=== PATIENT | female | born 1930 ===

== ENCOUNTER 2017-10-28 09:21 | Emergency (ER) | payer MEDICARE, OTHER ==
[2017-10-28 09:21] VITALS: BMI 31.1
[2017-10-28 09:32] VITALS: PULSE 87; O2SAT 97
--- NOTE | 2017-10-28 10:22 | C.PDOC ---
History Of Present Illness 87 yr old female presents to the ER with complaints of chest tightness and SOB since morning. Patient states it waxes and wanes but still present. Patient denies fever, chills, nausea, vomiting, abdominal pain, neck pain, weakness or numbness. Time Seen by Provider: 10/28/17 09:38 Chief Complaint (Nursing): Shortness Of Breath History Per: Patient History/Exam Limitations: no limitations Onset/Duration Of Symptoms: Waxing/Waning, Sudden Onset (since morning) Past Medical History Reviewed: Historical Data, Nursing Documentation, Vital Signs Vital Signs: Last Vital Signs Temp 98.4 F 10/28/17 11:41 Pulse 87 10/28/17 11:41 Resp 16 10/28/17 11:41 BP 147/84 10/28/17 11:41 Pulse Ox 97 10/28/17 12:28 - Medical History PMH: HTN, Hypercholesterolemia, Hypothyroidism Surgical History: Appendectomy (60 years ago), Cholecystectomy Family History: States: No Known Family Hx - Social History Hx Alcohol Use: No Hx Substance Use: No - Immunization History Hx Influenza Vaccination: Yes Hx Pneumococcal Vaccination: Yes Review Of Systems Except As Marked, All Systems Reviewed And Found Negative. Constitutional: Negative for: Fever, Chills Cardiovascular: Positive for: Other (+ chest tightness) Respiratory: Positive for: Shortness of Breath Gastrointestinal: Negative for: Nausea, Vomiting, Abdominal Pain Musculoskeletal: Negative for: Neck Pain Neurological: Negative for: Weakness, Numbness Physical Exam - Physical Exam Appears: Non-toxic, No Acute Distress Skin: Warm, Dry, No Rash Eye(s): bilateral: Normal Inspection, PERRL, EOMI Oral Mucosa: Moist Tongue: No Swelling Neck: Normal, Normal ROM, Supple Cardiovascular: Rhythm Regular, No Murmur Respiratory: Normal Breath Sounds, No Rales, No Rhonchi, No Stridor, No Wheezing Neurological/Psych: Oriented x3, Normal Speech ED Course And Treatment - Laboratory Results Result Diagrams: 10/28/17 10:45 10/28/17 10:45 ECG: Interpreted By Me, Viewed By Me ECG Rhythm: Sinus Rhythm Interpretation Of ECst degree AV block. Poor R wave progresssion. Non specific T wave changes. Rate From EC (BPM) O2 Sat by Pulse Oximetry: 97 (RA) Pulse Ox Interpretation: Normal - Other Rad CXR X-Ray: Viewed By Me, Read By Radiologist Interpretation: PROCEDURE: CHEST RADIOGRAPH, 1 VIEW. HISTORY: chest pain. COMPARISON: 12/21/2015. FINDINGS: LUNGS: No consolidation lung volumes shallow. Mild interstitial lung marking prominence- appearing. PLEURA: No pneumothorax or pleural fluid seen. CARDIOVASCULAR: Probable minimal cardiomegaly. No charley pulmonary venous congestion noted. OSSEOUS STRUCTURES: Bilateral shoulder arthrosis. VISUALIZED UPPER ABDOMEN: Normal. OTHER FINDINGS: Probable summation soft tissues overlying the right costophrenic angle. IMPRESSION: No interval pathology noted Progress Note: Patient signed out AMA. Patient understands risks of leaving againt medical advise. Patient is advised to follow up with PMD as soon as possible. Medical Decision Making Medical Decision Making: PLAN: * CXR * EKG * Labs * Aspirin PO Disposition Counseled Patient/Family Regarding: Studies Performed, Diagnosis, Need For Followup - Disposition Referrals: Jc Abad MD [Staff Provider] - Disposition: AGAINST MEDICAL ADVICE Disposition Time: 12:26 Condition: FAIR Additional Instructions: you are signing out against medical advice and assuming responsibility of your care you understand symptoms may progress or worsen and lead to irreversible outcome including you are welcome to return to ER at anytime follow up with your doctor immediately Instructions: Chest Pain Forms: [employer] (Citizen Of [place]) Print Language: KOREAN - Clinical Impression Clinical Impression: Chest pain - Scribe Statement The provider has reviewed the documentation as recorded by the Sueibbrett Mcmahon Provider Attestation: All medical record entries made by the Sueibbrett were at my direction and personally dictated by me. I have reviewed the chart and agree that the record accurately reflects my personal performance of the history, physical exam, medical decision making, and the department course for this patient. I have also personally directed, reviewed, and agree with the discharge instructions and disposition.
--- NOTE | 2017-10-28 10:40 | RAD ---
PROCEDURE: CHEST RADIOGRAPH, 1 VIEW HISTORY: chest pain COMPARISON: 12/21/2015 FINDINGS: LUNGS: No consolidation lung volumes shallow. Mild interstitial lung marking prominence- appearing PLEURA: No pneumothorax or pleural fluid seen. CARDIOVASCULAR: Probable minimal cardiomegaly No charley pulmonary venous congestion noted OSSEOUS STRUCTURES: Bilateral shoulder arthrosis VISUALIZED UPPER ABDOMEN: Normal. OTHER FINDINGS: Probable summation soft tissues overlying the right costophrenic angle. IMPRESSION: No interval pathology noted
[2017-10-28 10:55] LABS: BASO # 0.1 K/uL (0.0-0.2); EOS # 0.1 K/uL (0.0-0.7); EOS % 1.8 % (0.0-4.0); HEMOGLOBIN 13.5 g/dL (11.0-16.0); LYMPH # 2.2 K/uL (1.0-4.3); LYMPH % 26.8 % (20.0-40.0); MEAN CELL VOLUME 92.9 fL (81.0-99.0); MEAN CORPUSCULAR HGB CONC 34.5 g/dL (33.0-37.0); MEAN PLATELET VOLUME 9.9 fL (7.2-11.7); MONO # 0.6 K/uL (0.0-0.8); MONO % 6.8 % (0.0-10.0); NEUT # 5.2 K/uL (1.8-7.0); NEUT % 63.6 % (50.0-75.0); NRBC % 0.1 % (0.0-2.0); RBC 4.23 Mil/uL (3.80-5.20); RED CELL DISTRIBUTION WIDTH 13.1 % (11.5-14.5); WHITE BLOOD COUNT 8.1 K/uL (4.8-10.8)
[2017-10-28 11:13] LABS: ALBUMIN 3.9 g/dL (3.5-5.0); ALT/SGPT 29 U/L (9-52); AST/SGOT 31 U/L (14-36); BLOOD UREA NITROGEN 14 mg/dL (7-17); CALCIUM 8.7 mg/dl (8.6-10.4); GFR AFRICAN-AMERICAN > 60; GFR NON-AFRICAN AMERICAN > 60
[2017-10-28 11:21] LABS: B-TYPE NATRIURETIC PEPTIDE 63.5 pg/mL (0-900)
[2017-10-28 11:42] VITALS: BP 147/84; RESP 16; TEMP 98.4
--- NOTE | 2017-10-30 08:55 | CARD ---
APPROVED REPORT EKG Measurement Heart [id number] <Conclusion> Sinus rhythm with 1st degree AV block Possible Anterior infarct, age undetermined Abnormal ECG
== END 2017-10-28 13:02 | disposition left against medical advice (07) ==
LOC: C.ER 09:21
DX: R07.9 Chest pain, unspecified (principal)

== ENCOUNTER 2018-09-13 10:00 | Outpatient (CLI) | payer MEDICARE, OTHER | END 2018-09-13 10:01 | disposition home or self-care (01) | LOC: C.RADH 10:00 | DX: J06.9 Acute upper respiratory infection, unspecified (principal) ==

== ENCOUNTER 2018-10-30 11:36 | Emergency (ER) | payer MEDICARE, OTHER ==
[2018-10-30 11:36] VITALS: BMI 31.1
[2018-10-30 12:01] VITALS: RESP 18
--- NOTE | 2018-10-30 13:07 | C.PDOC ---
History Of Present Illness 88 years old female presents to ED for complaints of neck, head, and right sided shoulder pain associated with dizziness and vomiting THIRD HAND. Patient states she lost balance as she was going up the stairs with a shopping cart and slipped and fell. As per neighbor, she found patient on the floor with the shopping cart on top of her then she called 911. Denies LOC, numbness, weakness, vision changes, chest pain or SOB. - HPI Time Seen by Provider: 10/30/18 11:55 Chief Complaint (Nursing): Trauma History Per: Patient History/Exam Limitations: no limitations Onset/Duration Of Symptoms: Sudden Onset Injury Occurred (Timing): Hours Ago: Location Of Injury: Right: Head, Neck, Shoulder Pain Scale Rating Of: 6 Associated Symptoms: Dizziness Recent travel outside of the [place]: No - Fall Fall:Prior To Injury: Slipped Past Medical History Reviewed: Historical Data, Nursing Documentation, Vital Signs Vital Signs: Last Vital Signs Temp 98 F 10/30/18 11:45 Pulse 90 10/30/18 11:45 Resp 18 10/30/18 11:45 BP 201/90 H 10/30/18 11:45 Pulse Ox 99 10/30/18 11:45 - Medical History PMH: HTN, Hypercholesterolemia, Hypothyroidism Denies: Chronic Kidney Disease Surgical History: Appendectomy (60 years ago), Cholecystectomy Family History: States: No Known Family Hx - Social History Hx Alcohol Use: No Hx Substance Use: No - Immunization History Hx Influenza Vaccination: Yes Hx Pneumococcal Vaccination: Yes Review Of Systems Except As Marked, All Systems Reviewed And Found Negative. Constitutional: Negative for: Fever, Chills Eyes: Negative for: Pain, Vision Change ENT: Negative for: Ear Pain, Ear Discharge Cardiovascular: Negative for: Chest Pain, Palpitations Respiratory: Negative for: Shortness of Breath Gastrointestinal: Positive for: Nausea, Vomiting. Negative for: Abdominal Pain, Diarrhea Genitourinary: Negative for: Dysuria, Frequency Musculoskeletal: Positive for: Neck Pain, Shoulder Pain, Other (Head pain ) Skin: Negative for: Rash Neurological: Positive for: Dizziness. Negative for: Weakness, Numbness, Incoordination, Change in Speech, Seizures, Altered Mental Status Physical Exam - Physical Exam Appears: Non-toxic, No Acute Distress Skin: Normal Color, Warm, Dry, No Rash Head: Atraumatic, Normacephalic Eye(s): bilateral: Normal Inspection, PERRL, EOMI Ear(s): Bilateral: Normal (No hemotympanum) Nose: Normal, No Discharge Oral Mucosa: Moist Tongue: Normal Appearing (midline), No Swelling Throat: Normal, No Erythema, No Exudate, No Drooling, No Mass Neck: Normal ROM, Midline Cervical Tenderness Chest: Symmetrical, No Tenderness Cardiovascular: Rhythm Regular, No Friction Rub, No Murmur Respiratory: Normal Breath Sounds, No Rales, No Rhonchi, No Wheezing Gastrointestinal/Abdominal: Normal Exam, Bowel Sounds (Active ), Soft, No Tenderness, No Guarding, No Rebound Back: Normal Inspection, No CVA Tenderness Extremity: Normal ROM, No Deformity, No Swelling Extremity: Bilateral: Atraumatic, Normal Color And Temperature, Normal ROM Pulses: Left Dorsalis Pedis: Normal, Right Dorsalis Pedis: Normal Neurological/Psych: Oriented x3, Normal Speech, Normal Cranial Nerves, Normal Motor, Normal Sensation, Normal Reflexes, Other (No focal deficits ) Gait: Steady ED Course And Treatment O2 Sat by Pulse Oximetry: 99 (RA) Pulse Ox Interpretation: Normal - Other Rad CXR X-Ray: Viewed By Me, Read By Radiologist Interpretation: Date of service: 10/30/2018. HISTORY: fall, chest pain. COMPARISON: Comparison chest 09/13/2018. FINDINGS: LUNGS: Poor inspiration with low lung volumes, crowded bronchovascular markings and mild bibasilar atelectasis. The interstitial markings are also increased and coarsened; rule out underlying sequela reactive/inflammatory airway disease or viral illness. PLEURA: No significant pleural effusion identified, no pneumothorax apparent. CARDIOVASCULAR: No aortic atherosclerotic calcification present. Cardiomegaly. . OSSEOUS STRUCTURES: No significant abnormalities. VISUALIZED UPPER ABDOMEN: Normal. OTHER FINDINGS: None. IMPRESSION: Poor inspiration with low lung volumes, crowded bronchovascular markings and mild bibasilar atelectasis. The interstitial markings are also increased and coarsened; rule out underlying sequela reactive/inflammatory airway disease or viral illness Hip/Pelvis X-Ray X-Ray: Viewed By Me, Read By Radiologist Interpretation: Date of service: 10/30/2018. PROCEDURE: Pelvis-right hip. HISTORY: hip pain. COMPARISON: No prior studies available for comparison. TECHNIQUE: Frontal view of the pelvis and both hips as well as frogleg lateral view right hip performed. FINDINGS: The current study reveals no evidence of acute displaced fracture nor dislocation. The osseous structures appear intact. Both femoral heads appropriately located within the respective acetabula. Mild degenerative osteoarthritis both hip joints. Mild sclerosis both SI joints. Multilevel degenerative spondylosis of the lower lumbosacral spine. IMPRESSION: No definitive radiographic evidence of acute displaced fracture nor dislocation. If symptoms persist or occult fracture suspected clinically recommend follow-up CT scan of the pelvis and right hip Right Knee X-Ray X-Ray: Viewed By Me, Read By Radiologist Interpretation: Date of service: 10/30/2018. PROCEDURE: Right Knee Radiographs. HISTORY: knee injury. COMPARISON: None. FINDINGS: BONES: No evidence of acute displaced fracture nor dislocation. 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 There is joint space narrowing with subchondral sclerosis and vacuum disc phenomena. JOINT EFFUSION: No significant joint effusion. OTHER FINDINGS: There are soft tissue calcifications seen adjacent to the medial femoral condyle possibly within the medial collateral ligament appeared there is also an elliptical shaped calcification the the within the lateral soft tissues at the level of the lateral margin of the distal femoral metaphysis. Calcifications also seen adjacent to the lateral joint space margin. IMPRESSION: No evidence of acute displaced fracture nor dislocation. 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 PROCEDURE: CT HEAD WITHOUT CONTRAST. HISTORY: Head injury; rule hemorrhage. COMPARISON: Comparison made with prior CT scan brain 12/21/2015. TECHNIQUE: Axial computed tomography images were obtained through the head/brain without intravenous contrast. Radiation dose: Total exam DLP = 1273.29 mGy-cm. This CT exam was performed using one or more of the following dose reduction techniques: Automated exposure control, adjustment of the mA and/or kV according to patient size, and/or use of iterative reconstruction technique. FINDINGS: HEMORRHAGE: No intracranial hem orrhage. BRAIN: Moderate chronic periventricular white matter ischemic changes seen extending peripherally into the deep and subcortical white matter both cerebral hemispheres.. There is also some extension these changes into the white matter tracts of both basal nuclei. 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 Mild generalized volume loss. Mild vascular calcifications both carotid siphons. VENTRICLES: Unremarkable. No hydrocephalus. CALVARIUM: Calvarium intact. PARANASAL SINUSES: Mild mucosal thickening seen in both maxillary antra as well as several ethmoid air cells. MASTOID AIR CELLS: Unremarkable as visualized. No inflammatory changes. OTHER FINDINGS: Redemonstrated are changes of bilateral cataract surgery. IMPRESSION: Moderate chronic white matter and basal nuclei ischemic changes as above. Mild generalized volume loss. Cervical Spine CT Other Rad Studies (CT/US): Read By Radiologist, Radiology Report Reviewed CT/US Interpretation: Date of service: 10/30/2018. PROCEDURE: CT Cervical Spine without contrast. HISTORY: Status post fall, neck pain, Hard collar in place. COMPARISON: Correlation made with plain film radiographs of the cervical spine 03/14/2018. TECHNIQUE: Axial computed tomography images were obtained of the cervical spine without the use of intravenous contrast. Coronal and sagittal reformatted images were created and reviewed. Radiation dose: Total exam DLP = 507.08 mGy-cm. This CT exam was performed using one or more of the following dose reduction techniques: Automated exposure control, adjustment of the mA and/or kV according to patient size, and/or use of iterative reconstruction technique. FINDINGS: VERTEBRAE: No acute compression fractures no retropulsed fragments. Vertebral bodies exhibit relatively normal stature and alignment. Facets normally aligned. Redemonstrated are nonspecific lucent changes within the C6 vertebral body possibly representing underlying hemangioma. . DISCS/SPINAL CANAL/NEURAL FORAMINA: Multilevel degenerative spondylosis. At the C5-C6 level, there is disc space narrowing with what appears represent a disc calcification. Small broad-based disc ridge complex contiguous with hypertrophic uncovertebral joints. The facets are mildly hypertrophic. Central canal appears adequate however the exit foramina appear narrowed. At the C4-C5 level, there is adequate disc height with what appears represent faint intradiscal calcification. No disc herniation or significant disc bulge. Facets are quite hypertrophic. There is moderate hypertrophic uncovertebral joint changes with bilateral foraminal stenosis. At the C3-C4 level, there is adequate disc height.. Small broad-based disc ridge complex contiguous with hypertrophic uncovertebral joints right larger than left. The right facet is also quite hypertrophic more so than left. Right-sided foraminal stenosis. Left exit foramen is adequate. Mild degenerative changes seen at the C6-C7 level. PARASPINAL SOFT TISSUES: Unremarkable. OTHER FINDINGS: Enlarged heterogeneous right lobe thyroid gland (with what appear to represent scattered ill-defined areas of low attenuation) for which non emergent thyroid ultrasound follow-up recommended. Lung apices are clear. IMPRESSION: No acute fractures. Multilevel degenerative spondylosis as described. Enlarged right lobe thyroid gland for which nonemergent thyroid ultrasound recommended for further evaluation as above. Medical Decision Making Medical Decision Making: Plan: * Zofran * Tylenol * EKG * CXR * Knee 3 views X-Ray * CT Cervical Spine * CT Head * Hip X-Ray On re-exam, the patient reports improvement of symptoms, Lungs are CTA, heart is RRR, abdomen is soft, non-tender and the patient is tolerating PO well. Pt is ambulatory in the ED with steady gait. Follow up with the medical doctor within 1-2 days. Return if worsened. Disposition - Disposition Referrals: Jc Abad MD [Staff Provider] - Disposition: HOME/ ROUTINE Disposition Time: 15:40 Condition: GOOD Additional Instructions: Follow up with the medical doctor within 1-2 days. Return if worsened. Prescriptions: Acetaminophen [Tylenol] 325 mg PO Q6 PRN #30 tab PRN Reason: Pain, Mild (1-3) Ondansetron ODT [Zofran ODT] 1 odt PO BID PRN #6 odt PRN Reason: Nausea/Vomiting Instructions: Concussion, Adult (DC) Forms: [facility] (Vietnamese) - Clinical Impression Clinical Impression: Concussion with no loss of consciousness, Head injury, Cervical sprain, Contusion, hip, Knee contusion - PA / SENIOR C SOFTWARE ENGINEER / Resident Statement MD/DO has reviewed & agrees with the documentation as recorded. - Scribe Statement The provider has reviewed the documentation as recorded by the Sueibbrett Farnsworth All medical record entries made by the Sueibbrett were at my direction and personally dictated by me. I have reviewed the chart and agree that the record accurately reflects my personal performance of the history, physical exam, medical decision making, and the department course for this patient. I have also personally directed, reviewed, and agree with the discharge instructions and disposition.
--- NOTE | 2018-10-30 13:27 | CT ---
Date of service: 10/30/2018 PROCEDURE: CT HEAD WITHOUT CONTRAST. HISTORY: Head injury; rule hemorrhage. COMPARISON: Comparison made with prior CT scan brain 12/21/2015. TECHNIQUE: Axial computed tomography images were obtained through the head/brain without intravenous contrast. Radiation dose: Total exam DLP = 1273.29 mGy-cm. This CT exam was performed using one or more of the following dose reduction techniques: Automated exposure control, adjustment of the mA and/or kV according to patient size, and/or use of iterative reconstruction technique. FINDINGS: HEMORRHAGE: No intracranial hemorrhage. BRAIN: Moderate chronic periventricular white matter ischemic changes seen extending peripherally into the deep and subcortical white matter both cerebral hemispheres.. There is also some extension these changes into the white matter tracts of both basal nuclei. 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 Mild generalized volume loss. Mild vascular calcifications both carotid siphons VENTRICLES: Unremarkable. No hydrocephalus. CALVARIUM: Calvarium intact PARANASAL SINUSES: Mild mucosal thickening seen in both maxillary antra as well as several ethmoid air cells. MASTOID AIR CELLS: Unremarkable as visualized. No inflammatory changes. OTHER FINDINGS: Redemonstrated are changes of bilateral cataract surgery. IMPRESSION: Moderate chronic white matter and basal nuclei ischemic changes as above. Mild generalized volume loss.
--- NOTE | 2018-10-30 13:39 | CT ---
Date of service: 10/30/2018 PROCEDURE: CT Cervical Spine without contrast HISTORY: Status post fall, neck pain, Hard collar in place COMPARISON: Correlation made with plain film radiographs of the cervical spine 03/14/2018. TECHNIQUE: Axial computed tomography images were obtained of the cervical spine without the use of intravenous contrast. Coronal and sagittal reformatted images were created and reviewed. Radiation dose: Total exam DLP = 507.08 mGy-cm. This CT exam was performed using one or more of the following dose reduction techniques: Automated exposure control, adjustment of the mA and/or kV according to patient size, and/or use of iterative reconstruction technique. FINDINGS: VERTEBRAE: No acute compression fractures no retropulsed fragments. Vertebral bodies exhibit relatively normal stature and alignment. Facets normally aligned. Redemonstrated are nonspecific lucent changes within the C6 vertebral body possibly representing underlying hemangioma. . DISCS/SPINAL CANAL/NEURAL FORAMINA: Multilevel degenerative spondylosis. At the C5-C6 level, there is disc space narrowing with what appears represent a disc calcification. Small broad-based disc ridge complex contiguous with hypertrophic uncovertebral joints. The facets are mildly hypertrophic. Central canal appears adequate however the exit foramina appear narrowed. At the C4-C5 level, there is adequate disc height with what appears represent faint intradiscal calcification. No disc herniation or significant disc bulge. Facets are quite hypertrophic. There is moderate hypertrophic uncovertebral joint changes with bilateral foraminal stenosis. At the C3-C4 level, there is adequate disc height.. Small broad-based disc ridge complex contiguous with hypertrophic uncovertebral joints right larger than left. The right facet is also quite hypertrophic more so than left. Right-sided foraminal stenosis. Left exit foramen is adequate. Mild degenerative changes seen at the C6-C7 level. PARASPINAL SOFT TISSUES: Unremarkable. OTHER FINDINGS: Enlarged heterogeneous right lobe thyroid gland (with what appear to represent scattered ill-defined areas of low attenuation) for which non emergent thyroid ultrasound follow-up recommended. Lung apices are clear. IMPRESSION: No acute fractures. Multilevel degenerative spondylosis as described. Enlarged right lobe thyroid gland for which nonemergent thyroid ultrasound recommended for further evaluation as above.
[2018-10-30 15:42] VITALS: BP 178/88; PULSE 89; TEMP 98.4
[2018-10-30 15:44] VITALS: O2SAT 99
--- NOTE | 2018-10-30 16:03 | RAD ---
Date of service: 10/30/2018 PROCEDURE: Pelvis-right hip. HISTORY: hip pain COMPARISON: No prior studies available for comparison TECHNIQUE: Frontal view of the pelvis and both hips as well as frogleg lateral view right hip performed. FINDINGS: The current study reveals no evidence of acute displaced fracture nor dislocation. The osseous structures appear intact. Both femoral heads appropriately located within the respective acetabula. Mild degenerative osteoarthritis both hip joints. Mild sclerosis both SI joints. Multilevel degenerative spondylosis of the lower lumbosacral spine. IMPRESSION: No definitive radiographic evidence of acute displaced fracture nor dislocation. If symptoms persist or occult fracture suspected clinically recommend follow-up CT scan of the pelvis and right hip
--- NOTE | 2018-10-30 16:05 | RAD ---
Date of service: 10/30/2018 PROCEDURE: Right Knee Radiographs. HISTORY: knee injury COMPARISON: None. FINDINGS: BONES: No evidence of acute displaced fracture nor dislocation. 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 There is joint space narrowing with subchondral sclerosis and vacuum disc phenomena. JOINT EFFUSION: No significant joint effusion OTHER FINDINGS: There are soft tissue calcifications seen adjacent to the medial femoral condyle possibly within the medial collateral ligament appeared there is also an elliptical shaped calcification the the within the lateral soft tissues at the level of the lateral margin of the distal femoral metaphysis. Calcifications also seen adjacent to the lateral joint space margin. IMPRESSION: No evidence of acute displaced fracture nor dislocation. 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
--- NOTE | 2018-10-30 16:06 | RAD ---
Date of service: 10/30/2018 HISTORY: fall, chest pain COMPARISON: Comparison chest 09/13/2018 FINDINGS: LUNGS: Poor inspiration with low lung volumes, crowded bronchovascular markings and mild bibasilar atelectasis. The interstitial markings are also increased and coarsened; rule out underlying sequela reactive/inflammatory airway disease or viral illness PLEURA: No significant pleural effusion identified, no pneumothorax apparent. CARDIOVASCULAR: No aortic atherosclerotic calcification present. Cardiomegaly. . OSSEOUS STRUCTURES: No significant abnormalities. VISUALIZED UPPER ABDOMEN: Normal. OTHER FINDINGS: None. IMPRESSION: Poor inspiration with low lung volumes, crowded bronchovascular markings and mild bibasilar atelectasis. The interstitial markings are also increased and coarsened; rule out underlying sequela reactive/inflammatory airway disease or viral illness
--- NOTE | 2018-10-31 22:27 | CARD ---
APPROVED REPORT Date of service: 10/30/2018 EKG Measurement Heart [id number] <Conclusion> Sinus rhythm with 1st degree AV block Otherwise normal ECG
== END 2018-10-30 16:05 | disposition home or self-care (01) ==
LOC: C.ER 11:36
DX: S80.01XA Contusion of right knee, initial encounter (principal); S70.01XA Contusion of right hip, initial encounter; S13.4XXA Sprain of ligaments of cervical spine, initial encounter; S09.90XA Unspecified injury of head, initial encounter; W01.0XXA Fall on same level from slipping, tripping and stumbling without subsequent striking against object, initial encounter; E78.00 Pure hypercholesterolemia, unspecified; I10 Essential (primary) hypertension; E03.9 Hypothyroidism, unspecified